=== PATIENT | female | born 1970 | race Caucasian/White ===

== ENCOUNTER 2018-06-04 22:38 | Emergency (ER) | payer OTHER, SELFPAY ==
[2018-06-04 22:38] VITALS: BP 156/82; PULSE 71; RESP 14; TEMP 36.4; O2SAT 100; BMI 44.8
--- NOTE | 2018-06-04 22:59 | ED.DCSUM_ITS ---
- ER Visit Summary Date of Service: 06/04/18 Chief Complaint: Vaginal bleeding History of Present Illness: The patient is a 47 F who started her last menstrual period yesterday. Patient states today the bleeding has been very heavy. Since 6 AM this morning she is gone through 4 regular pads and 3 overnight pads. She bled through an overnight pad in the past 4 hours. She states she did miss her menses last month only spotting for a few days. She did take 2 home tests that were negative. Physical Examination: Vital signs significant for blood pressure 156/82, otherwise unremarkable. Patient sitting upright in bed no acute distress. Head and neck examination unremarkable. Heart is regular rate and rhythm. Lung sounds are clear. Abdomen is soft and nontender. Test Results: CBC is significant for hemoglobin 11 hematocrit of 35.4. Chemistry studies unremarkable. Serum test is negative. Emergency Department Course and Treatment: Patient was given IV fluids here. I spoke with Dr. Gao, on-call for Dr. Crenshaw. We will write a prescription for Provera for the patient. She will watch her symptoms over the next 12 hours. If her bleeding continues to be quite heavy, she will fill the prescription and start this. If it starts to taper off she will not take the medication as to not skew any biopsy results should it need to be performed. Patient understands the plan. She is to call the office on Monday to schedule a follow-up appointment. Treatment Plan: [] Disposition: Discharge Impression: Menorrhagia This note was generated with [employer] dictation software. It may contain incorrect words, spelling, and punctuation that were not noted in review of the chart prior to signing ED Disposition - Plan for ED Patient: Chief Complaint: Vag Bleeding
[2018-06-04] MEDS: 0.9% Normal Saline 1,000 ML 1000 ML IV (23:07)
[2018-06-04 23:22] LABS: Absolute Lymphocyte Count 3.12 X10^3/ul (0.83-4.51); Absolute Neutrophil Count 4.2 X10^3/uL (2.0-7.7); Basophil# 0.09 X10^3/uL; Basophil% 1.1 % (0-1); Eosinophil# 0.24 X10^3/uL; Eosinophils% 2.9 % (0-5); Hematocrit 35.4 % (37-47); Lymphocyte # 3.12 X10^3/ul (4.0); Lymphocyte % 37.1 % (19-41); Mean Corp Hgb Conc 31.1 g/gl (32-36); Mean Corpuscular Hgb 23.8 pg (27.0-32.0); Mean Corpuscular Volume 76.5 fL (81-99); Monocyte# 0.72 X10^3/uL; Monocyte% 8.6 % (0-10); Neutrophil % 49.9 % (47-70); Platelet Count 256 K/mm3 (150-450); RBC Distribution Width CV 16.8 % (11.6-14.6); RBC Distribution Width SD 45.2 fl (35.1-43.9); Red Blood Count 4.63 M/mm3 (4.2-5.4); White Blood Count 8.4 K/mm3 (4.4-11.0)
[2018-06-04 23:23] LABS: POSITIVE COUNT NO; POSITIVE DIFFERENTIAL NO; POSITIVE MORPHOLOGY NO
[2018-06-04 23:39] LABS: Anion Gap 9 (5-15); BUN 21 mg/dL (7-18); BUN/Creat Ratio 27.8 RATIO (10-20); Calcium,Total 8.4 mg/dL (8.5-10.1); Chloride 109 mmol/L (98-107); Creatinine, Serum 0.76 mg/dL (0.55-1.02); EST Glomerular Filtration Rate 87 mL/min (>60); Est Glom Filt Rate - Afr Amer 105 mL/min (>60); Estimated Creatinine Clearance 72.38 ml/min; Glucose 95 mg/dL (74-106); Potassium 3.6 mmol/L (3.5-5.1); Sodium Level 143 mmol/L (136-145)
[2018-06-05 00:02] LABS: Pregnancy, Serum, hCG Quali. NEGATIVE Negative (0-9 Nonpreg)
--- NOTE | 2018-06-05 00:18 | ED.DEP ---
ED Disposition - Plan for ED Patient: Disposition: Home or Assisted Living Chief Complaint: Vag Bleeding Instructions: ED Bleeding Menstrual Heavy Prescriptions: Medroxyprogesterone Acetate [Provera] 10 mg PO DAILY #22 tablet Referrals: Poly Crenshaw MD [STAFF PHYSICIAN] - 1 Week Additional Instructions: Call Monday to make an appointment for follow-up.
[2018-06-05 00:28] VITALS: BP 147/67; PULSE 71; RESP 18; O2SAT 97
== END 2018-06-05 00:29 | disposition home or self-care (01) ==
PROVIDERS: Emergency Provider Emergency Medicine
DX: N92.0 Excessive and frequent menstruation with regular cycle (principal); Z87.891 Personal history of nicotine dependence
CPT/HCPCS: 80048; 84703; 85025; 96360; 99284; A4216